=== PATIENT | female | born 1980 | race Caucasian/White ===

== ENCOUNTER 2019-07-17 06:12 | Inpatient (IN) | payer OTHER ==
[~2019-07-17] VITALS: Ht 152.4 cm; Wt 76.4 kg
[2019-07-17] VITALS (73 sets, daily range): BP systolic 86–157; BP diastolic 51–82
--- NOTE | 2019-07-17 06:25 | NUR ---
ADRI LOPEZ presented to unit via ambulation from home/ED, accompanied by Joel Cedillo, automation technologist & SO, for INDUCTION. ADRI LOPEZ weighed, gowned, voided, and to bed. EFHM and TOCO applied, VS taken. ADRI LOPEZ oriented to bed controls, call light, TV, heat, and A/C controls.
[2019-07-17] MEDS ORDERED: OXYTOCIN PRE-MIX DRIP 500 ML IV SCH (06:36)
[2019-07-17] MEDS: LACTATED RINGERS 1,000 ML IV SCH ×3 (06:56→21:00)
[2019-07-17 07:01] LABS: BASOPHILS % (AUTO) 0 % (0-10); EOSINOPHILS % (AUTO) 1 % (0-10); HEMATOCRIT 32 % (35-52); HEMOGLOBIN 10.8 G/DL (11.5-16.0); LYMPHOCYTES # (AUTO) 1.8 X 10^3 (1.0-4.0); LYMPHOCYTES % (AUTO) 32 % (12-44); MEAN CORPUSCULAR HEMOGLOBIN 30 PG (25-34); MEAN CORPUSCULAR HGB CONC 33 G/DL (32-36); MEAN CORPUSCULAR VOLUME 90 FL (80-99); MEAN PLATELET VOLUME 11.2 FL (7.4-10.4); MONOCYTES # (AUTO) 0.4 X 10^3 (0.0-1.0); MONOCYTES % (AUTO) 8 % (0-12); NEUTROPHILS # (AUTO) 3.2 X 10^3 (1.8-7.8); NEUTROPHILS % (AUTO) 59 % (42-75); PLATELET COUNT 213 10^3/uL (130-400); RED CELL DISTRIBUTION WIDTH 13.2 % (10.0-14.5); WHITE BLOOD COUNT 5.5 10^3/uL (4.3-11.0)
--- NOTE | 2019-07-17 07:17 | History & Physical-OB ---
OB - Chief Complaint & HPI Date/Time Date of Admission: Date of Admission: July 17, 2019 at 06:12 Date seen by a Provider: July 17, 2019 Time Seen by a Provider: 08:25 Chief Complaint/History OB-Reason for Admission/Chief: Obstetrical Complication (GDMA2) Hx : 6 Expected Date of Delivery: Aug 21, 2019 Gestational Age in Weeks: 39 Gestational Age in Days: 0 Indication for induction: medical complication Admission Nurse Assessment Rev: Yes History of Labs A pos, Ab neg, RI. HIV/HepB/RPR NR. GC/chlamydia neg. GBS neg. Other AMA, patient declined cell free DNA testing. Had IUD prior to that was not observed to expelled, but not seen on US and patient declined further imaging to eval for abdominal location, no symptoms noted. Allergies and Home Medications Allergies Coded Allergies: No Known Allergies (Verified Allergy, Unknown, 10/25/05) Home Medications Levothyroxine Sodium 75 Mcg Tablet, 75 MCG PO DAILY, (Reported) Metformin HCl 500 Mg Tablet, 500 MG PO BID, (Reported) Vit/Iron Fumarate/FA 1 Each Tablet, 1 EACH PO DAILY, (Reported) Patient Home Medication List Home Medication List Reviewed: Yes OB - History Hx of Present Ultrasounds: Normal mid trimester US, Other (38 week US growth 3685 grams, rayo garcia BPP from 36 weeks have been normal.) Obstetrical History Hx : 6 Hx Para: 5 Hx # Term Pregnancies: 5 Hx # Pregnancies: 0 Number of Living Children: 5 Hx Termination: No Hx Multiple Gestation: No Hx Ectopic : No Hx Stillbirth: No Hx Complication: Yes Hx Induced Hypertens: No Hx Maternal Gestational Diabet: Yes Hx Hemorrhage: No Delivery History Hx Dystocia: No Hx Forceps Assisted Delivery: No Hx Vacuum Extraction Assisted: No Hx Placenta Abnormality: No Hx Distress: No Hx Large For Gestational Age I: No Hx Small for Gestational Age I: No Hx Section: No Hx Vaginal Delivery Post C-Sec: No Hx Blood Disorders: No Adverse Rxn to Tranfusion: No Patient Past Medical History PMHx: Hypothyroidism Social History/Family History HIV/AIDS: No Recent Infectious Disease Expo: No Sexually Transmitted Disease: No Alcohol Use: Denies Use Recreational Drug Use: No Smoking Cessation: Never smoker Immunizations Tetanus Booster (TDap): Less than 5yrs (06/04/2019) Rubella: immune RPR/VDRL: Negative GBS Status: Negative HBsAG: Negative OB - Admission Exam Physical Exam Vitals: Vital Signs 07/17/19 06:35 Temp 36.4 Pulse 73 Resp 16 Pulse Ox 98 O2 Delivery Room Air HEENT: NCAT Lungs: Clear Abdomen: Non tender Extremities: Normal Cervical Dilatation: 1cm Effacement: 0% Station: -3 Membranes: Intact Heart Rate: 140's Accelerations: Accelerations Present Decelerations: No Decelerations Short Term Variability: Present Community Health Advocate Variability: Average (6-25) Contractions on Admission: >10 Minutes Apart Brown Scoring Tool (Modified) Dilation (cm): 1-2cm (1) Effacement (%): 0-30% (0) Descent/Station: -3 (0) Cervix Consistency: Soft (2) Cervix Position: Anterior (2) Add 1 point for: Each previous vaginal delivery (1) (5) Brown Score: 10 Labs Laboratory Tests Test 07/17/19 06:39 Range/Units White Blood Count 5.5 4.3-11.0 10^3/uL Red Blood Count 3.59 L 4.35-5.85 10^6/uL Hemoglobin 10.8 L 11.5-16.0 G/DL Hematocrit 32 L 35-52 % Mean Corpuscular Volume 90 80-99 FL Mean Corpuscular Hemoglobin 30 25-34 PG Mean Corpuscular Hemoglobin Concent 33 32-36 G/DL Red Cell Distribution Width 13.2 10.0-14.5 % Platelet Count 213 130-400 10^3/uL Mean Platelet Volume 11.2 H 7.4-10.4 FL Neutrophils (%) (Auto) 59 42-75 % Lymphocytes (%) (Auto) 32 12-44 % Monocytes (%) (Auto) 8 0-12 % Eosinophils (%) (Auto) 1 0-10 % Basophils (%) (Auto) 0 0-10 % Neutrophils # (Auto) 3.2 1.8-7.8 X 10^3 Lymphocytes # (Auto) 1.8 1.0-4.0 X 10^3 Monocytes # (Auto) 0.4 0.0-1.0 X 10^3 Eosinophils # (Auto) 0.0 0.0-0.3 10^3/uL Basophils # (Auto) 0.0 0.0-0.1 10^3/uL Glucose Level 81 70-105 MG/DL OB - Assessment/Plan/Diagnosis Assessment Admission Dx 39 weeks gestation GDMA2 Hypothyroidism Induction of labor Rubella immune A positive blood type Admission Status: Inpatient Order (span 2 midnights) Reason for Inpatient Admission: Induction, labor and course Plan Plan: Induction Induction Method: per Pitocin Protocol Other Plan Glucose 80s on admit, recheck in 4 hours BAKARI GAMINO MD July 17, 2019 07:17
[2019-07-17] MEDS ORDERED: PREN-37 PO (08:36)
[2019-07-17] MEDS ORDERED: METF-397 PO (08:36)
[2019-07-17] MEDS ORDERED: LEVO75TA6 PO (09:42)
--- NOTE | 2019-07-17 12:26 | Anesthesia-Regional Post-Op ---
Regional Patient Condition Mental Status: Alert, Oriented x3 Circulation: Same as Pre-Op Headache: Absent Sensation: Full Recovery Motor Block: Absent Post Op Complications Complications None Follow Up Care/Instructions Patient Instructions None needed. Anesthesia/Patient Condition Patient is doing well, no complaints, stable vital signs, no apparent adverse anesthesia problems. No complications reported per nursing. RODOLFO CAZARES CRNA July 17, 2019 12:26
[2019-07-17] MEDS ORDERED: CATHETER FLUSH 10 ML SYR IV SCH (14:00)
[2019-07-17] MEDS ORDERED: fentaNYL INJECTION 100 MCG/2 ML AMP ONE ×2 (16:36→18:45)
[2019-07-17] MEDS: fentaNYL INJECTION 100 MCG/2 ML AMP IVP PRN ×2 (16:46→17:58)
[2019-07-17] MEDS ORDERED: fentaNYL 2 mcg/ml BUPIVA 0.125 100 ML ONE (18:11)
--- NOTE | 2019-07-17 18:15 | NUR ---
Joel Serrato CRNA notified of epidural request
[2019-07-17] MEDS ORDERED: BUPIVACAINE 0.25% 30 ML (SENSORCAINE) VIAL ONE (18:45)
--- NOTE | 2019-07-17 18:55 | NUR ---
Joel Serrato LASER SET UP OPERATOR here for epidural placement. Procedure explained, consent reviewed and signed by anesthesia. Questions answered to patient's satisfaction. Time out taken to verify correct patient/procedure. Patient up to side of bed, assisted into sitting position. Betadine prep done x3 and sterile drape applied. Local done, see anesthesia record. Test dose given, see anesthesia record for drug and dosage. Epidural catheter secured in place. Epidural placement complete. Assisted back into bed, monitors adjusted. Epidural dosed, see anesthesia record. Epidural of Sufenta/Bupvicaine @10cc/hr stated per pump. Patient tolerated procedure well.
[2019-07-17] MEDS ORDERED: LACTATED RINGERS 1,000 ML IV SCH (19:29)
[2019-07-17] MEDS ORDERED: METOCLOPRAMIDE INJ 10 MG/2 ML (REGLAN) IV PRN (19:30)
[2019-07-17] MEDS ORDERED: diphenhydrAMINE 50 MG/ML INJ (BENADRYL) IV PRN (19:30)
[2019-07-17] MEDS ORDERED: NALOXONE 0.4 MG/ML 1 ML (NARCAN) VIAL IV PRN ×2 (19:30)
[2019-07-17] MEDS ORDERED: ONDANSETRON 4 MG/2 ML (SDV) Z0FRAN IV PRN (19:30)
[2019-07-17] MEDS ORDERED: EPIDURAL (fentaNYL 2 MCG/ML BUPIVA 0.125%)100 ML BAG EPI PRN (19:30)
[2019-07-17] MEDS ORDERED: D5 LR IV SOLUTION 0 ML IV ONE (19:35)
[2019-07-17] MEDS ORDERED: MINERAL OIL CONCENTRATE 99.9% 15 ML UDC ONE (19:38)
[2019-07-18] VITALS (15 sets, daily range): BP systolic 92–150; BP diastolic 50–106
--- NOTE | 2019-07-18 00:37 | OB Labor & Delivery Record ---
Vag Delivery Note Vag Delivery Note Date of Delivery: 07/18/19 Preoperative Diagnosis: Shayla Cody is a 39 /Para 6 / 5, Gestational Age (wks)39with 1 day, undergoing IOL for GDMA2 Postoperative Diagnosis: Same Surgeon: BAKARI GAMINO Bank Analyst: None Anesthesia: Epidural Delivery Type: Spontaneous vaginal delivery Findings: Viable female infant, apgars 9/9, weight pending Lacerations: right periurethral and perineal abrasions Intact placenta with 3 vessel cord. No nuchal cord, body cord or shoulder dystocia Estimated Blood Loss: 200 ml Complications: None Condition: Stable Description of Procedure: The patient is a 39 year old female who presented for induction of labor due to GDMA2. She was admitted and informed consent was obtained. Her labor course was unremarkable. She progressed to complete dilatation and began to push. She was then set up for delivery. The 's head was delivered atraumatically in the OA position. The shoulders and remainder of the 's body were then delivered without difficulty. Upon delivery, the head was held below the level of the perineum and the mouth and nares were bulb suctioned. The cord was doubly clamped and cut and the infant was handed off to the pediatric staff. An intact placenta with 3-vessel cord delivered via Jenny and there was found to be minimal bleeding.~ Vigorous fundal massage was performed and the fundus was found to be firm. IV oxytocin was given. Examination of the vagina and perineum revealed a right periurethral and perineal abrasion not requiring repair. Following the delivery, sponge, instrument and needle counts were correct. Mom and baby were both in stable condition in the labor suite. Vitals - Labs Vital Signs - I&O Vital Signs Date Time Temp Pulse Resp B/P (MAP) Pulse Ox O2 Delivery O2 Flow Rate FiO2 07/17/19 23:45 83 18 128/61 (83) 100 Non Rebreather 15.00 07/17/19 23:30 76 18 119/59 (79) 100 Non Rebreather 15.00 07/17/19 23:15 75 18 113/56 (75) 100 Non Rebreather 15.00 07/17/19 23:00 77 18 104/59 (74) 100 Non Rebreather 15.00 07/17/19 22:45 69 18 118/67 (84) 100 Non Rebreather 15.00 07/17/19 22:30 65 18 128/66 (86) 100 Non Rebreather 15.00 07/17/19 22:15 63 18 125/64 (84) 100 Non Rebreather 15.00 07/17/19 22:00 60 18 101/54 (70) 100 Non Rebreather 15.00 07/17/19 21:45 64 18 109/66 (80) 100 Non Rebreather 15.00 07/17/19 21:30 57 18 97/56 (70) 100 Non Rebreather 15.00 07/17/19 21:15 55 18 102/57 (72) 100 Non Rebreather 15.00 07/17/19 21:00 62 18 94/51 (65) 100 Non Rebreather 15.00 07/17/19 20:45 55 18 97/52 (67) 100 Non Rebreather 15.00 07/17/19 20:30 77 18 104/59 (74) 100 Non Rebreather 15.00 07/17/19 20:15 63 18 101/57 (72) 100 Non Rebreather 15.00 07/17/19 20:00 36.0 71 18 107/58 (74) 100 Non Rebreather 07/17/19 19:53 57 18 94/51 (65) 100 Non Rebreather 07/17/19 19:50 63 18 95/52 (66) 100 Non Rebreather 07/17/19 19:47 60 18 93/54 (67) 100 Non Rebreather 07/17/19 19:45 66 18 95/54 (68) 99 Non Rebreather 07/17/19 19:42 68 18 96/51 (66) 100 Non Rebreather 07/17/19 19:39 66 18 93/55 (68) 100 Non Rebreather 07/17/19 19:36 64 18 91/53 (66) 100 Non Rebreather 07/17/19 19:33 81 18 92/51 (65) 100 Non Rebreather 15.00 07/17/19 19:30 95 18 86/53 (64) 99 Room Air 07/17/19 19:27 73 18 102/59 (73) 100 Room Air 07/17/19 19:23 70 18 117/59 (78) 98 Room Air 07/17/19 19:20 78 18 117/62 (80) 98 Room Air 07/17/19 19:17 99 18 113/58 (76) 100 Room Air 07/17/19 19:15 93 18 112/55 (74) 98 Room Air 07/17/19 19:11 101 18 113/60 (77) 98 Room Air 07/17/19 19:07 86 18 126/57 (80) 99 Room Air 07/17/19 19:00 94 18 133/63 (86) 98 Room Air 07/17/19 18:40 91 18 137/70 (92) 98 Room Air 07/17/19 18:25 85 18 95/65 (75) 07/17/19 18:10 85 18 126/77 (93) 07/17/19 17:55 70 18 122/82 (95) 07/17/19 17:40 36.7 74 18 157/72 (100) 07/17/19 17:25 70 18 116/66 (83) 07/17/19 17:10 58 18 119/68 (85) 07/17/19 16:55 65 18 117/76 (90) 07/17/19 16:40 72 18 111/70 (84) 07/17/19 16:25 65 18 110/66 (81) 07/17/19 16:15 55 18 114/74 (87) 07/17/19 15:55 36.6 64 18 114/68 (83) 07/17/19 15:40 65 18 135/79 (97) 07/17/19 15:25 68 18 119/69 (86) 07/17/19 15:10 59 18 113/78 (90) 07/17/19 14:55 63 18 111/66 (81) 07/17/19 14:40 58 18 108/65 (79) 07/17/19 14:25 72 18 106/68 (81) 07/17/19 14:10 66 18 107/67 (80) 07/17/19 13:55 60 18 106/70 (82) 07/17/19 13:40 64 18 108/60 (76) 07/17/19 13:25 59 18 105/61 (76) 07/17/19 13:15 36.6 64 18 115/57 (76) 07/17/19 12:55 75 18 120/76 (91) 07/17/19 12:38 62 18 117/72 (87) 07/17/19 11:55 64 18 104/61 (75) 07/17/19 11:45 59 18 110/70 (83) 07/17/19 11:10 65 18 119/73 (88) 07/17/19 10:55 68 18 113/69 (84) 07/17/19 10:40 75 18 109/69 (82) 07/17/19 10:25 36.4 63 18 107/74 (85) 07/17/19 10:10 66 18 106/71 (83) 07/17/19 09:55 66 18 101/67 (78) 07/17/19 09:40 52 18 115/69 (84) 07/17/19 09:10 62 18 107/74 (85) 07/17/19 08:55 63 18 116/73 (87) 07/17/19 08:40 68 18 105/66 (79) 07/17/19 08:25 61 18 105/63 (77) 07/17/19 08:10 36.5 65 18 111/79 (90) 07/17/19 06:35 36.4 73 16 98 Room Air I & O 07/18/19 07:00 Intake Total 1000 ml Balance 1000 ml Labs Laboratory Tests 07/17/19 06:39: White Blood Count 5.5, Red Blood Count 3.59L, Hemoglobin 10.8L, Hematocrit 32L, Mean Corpuscular Volume 90, Mean Corpuscular Hemoglobin 30, Mean Corpuscular Hemoglobin Concent 33, Red Cell Distribution Width 13.2, Platelet Count 213, Mean Platelet Volume 11.2H, Neutrophils (%) (Auto) 59, Lymphocytes (%) (Auto) 32, Monocytes (%) (Auto) 8, Eosinophils (%) (Auto) 1, Basophils (%) (Auto) 0, Neutrophils # (Auto) 3.2, Lymphocytes # (Auto) 1.8, Monocytes # (Auto) 0.4, Eosinophils # (Auto) 0.0, Basophils # (Auto) 0.0, Glucose Level 81, Syphilis Serology Non-Reactive 07/17/19 10:40: Glucometer 75 BAKARI GAMINO MD July 18, 2019 00:37
[2019-07-18] MEDS: OXYTOCIN PRE-MIX DRIP 500 ML IV SCH ×2 (00:45→01:45)
--- NOTE | 2019-07-18 02:50 | NUR ---
Pt to bedpan, first void since delivery, 600ml blood tinged with urine noted in hat, pericare pads changed.
[2019-07-18] MEDS ORDERED: BENZOCAINE/MENTHOL (DERMOPLAST) 60 ML CAN TP PRN (03:30)
[2019-07-18] MEDS ORDERED: WITCH HAZEL(TUCKS) 40 EA JAR TOP PRN (03:30)
[2019-07-18] MEDS: IBUPROFEN 600 MG (MOTRIN) TAB PO SCH ×4 (03:57→22:19)
--- NOTE | 2019-07-18 04:00 | NUR ---
Epidural cath removed, tip in tact, site o/a, asymptomatic per pt report. Pt to [facility] staff asssist, transferred to pp room 311, oriented to call system, surroundings and protocols, will cont to monitor.
[2019-07-18] MEDS ORDERED: CATHETER FLUSH 10 ML SYR IV SCH (06:00)
[2019-07-18] MEDS ORDERED: LEVOTHYROXINE 75 MCG (LEVOTHROID) TABLET PO SCH (06:30)
[2019-07-18] MEDS ORDERED: PRENATAL VITAMIN 1 EA TAB PO SCH (07:00)
[2019-07-18] MEDS: FERROUS SULF 325 MG (IRON) TAB PO SCH (09:23)
[2019-07-18] MEDS: DOCUSATE SODIUM 100 MG (COLACE) CAP PO SCH ×2 (09:24→22:19)
[2019-07-18] MEDS: PRENATAL VITAMIN 1 EA TAB PO SCH (09:24)
--- NOTE | 2019-07-18 11:17 | Anesthesia-Regional Post-Op ---
Regional Patient Condition Mental Status: Alert, Oriented x3 Circulation: Same as Pre-Op Headache: Absent Sensation: Full Recovery Motor Block: Absent Post Op Complications Complications None Follow Up Care/Instructions Patient Instructions None needed. Anesthesia/Patient Condition Patient is doing well, no complaints, stable vital signs, no apparent adverse anesthesia problems. No complications reported per nursing. EUNICE CURTIS CRNA July 18, 2019 11:17
[2019-07-19 01:30] VITALS: BP 105/68
[2019-07-19] MEDS: IBUPROFEN 600 MG (MOTRIN) TAB PO SCH ×2 (04:30→10:41)
[2019-07-19 06:00] LABS: BASOPHILS % (AUTO) 0 % (0-10); EOSINOPHILS # (AUTO) 0.1 10^3/uL (0.0-0.3); EOSINOPHILS % (AUTO) 1 % (0-10); HEMATOCRIT 30 % (35-52); HEMOGLOBIN 9.7 G/DL (11.5-16.0); LYMPHOCYTES # (AUTO) 2.6 X 10^3 (1.0-4.0); LYMPHOCYTES % (AUTO) 26 % (12-44); MEAN CORPUSCULAR HEMOGLOBIN 30 PG (25-34); MEAN CORPUSCULAR HGB CONC 33 G/DL (32-36); MEAN CORPUSCULAR VOLUME 92 FL (80-99); MONOCYTES # (AUTO) 0.7 X 10^3 (0.0-1.0); MONOCYTES % (AUTO) 7 % (0-12); NEUTROPHILS # (AUTO) 6.6 X 10^3 (1.8-7.8); NEUTROPHILS % (AUTO) 66 % (42-75); PLATELET COUNT 163 10^3/uL (130-400); RED CELL DISTRIBUTION WIDTH 13.6 % (10.0-14.5)
--- NOTE | 2019-07-19 07:31 | Discharge Summary ---
Diagnosis/Chief Complaint Date of Admission July 17, 2019 at 06:12 Date of Discharge July 19, 2019 Admission Diagnosis Admission Diagnosis 1. Intrauterine at 39 weeks 2. Gestational diabetes Discharge Diagnosis 1. Intrauterine at 39 weeks 2. Gestational diabetes Chief Complaint/HPI Chief Complaint/HPI 39-year-old 6 now L6 who initially presented at 39 weeks 1 day gestation for induction of labor due to gestational diabetes. She ultimately went on to deliver a term 8 lbs. 0 oz. female over an intact perineum except for right sided periurethral tear. Discharge Summary-OBS Procedures 1. Epidural per anesthesia 2. Spontaneous vaginal deliveryDr. Keyur Discharge Physical Examination Allergies: Coded Allergies: No Known Allergies (Verified Allergy, Unknown, 10/25/05) Vitals & I&Os Intake and Output 07/19/19 00:00 Intake Total 2100 ml Balance 2100 ml Vital Sign - Last 12Hours Date Time Temp Pulse Resp B/P (MAP) Pulse Ox O2 Delivery O2 Flow Rate FiO2 07/19/19 01:30 37.3 64 18 105/68 (80) 97 Room Air 07/18/19 00:15 15.00 General Appearance: No Acute Distress Respiratory: Clear to Auscultation Cardiovascular: Regular Rate Abdominal: Soft (With uterus firm) Hospital Course Was the Problem List Reviewed?: Yes Following delivery patient underwent routine care orders. She had no complications during the remainder of hospital stay. Her hemoglobin in the morning of July 18 was 9.7 compared to admission on 528 of 10.8. Her glucose remained stable during the course of her hospital stay not requiring any medications. She was taking occasional ibuprofen for cramps. She had no complaints in the morning of July 18 and was eager for dismissal. She will follow-up with Dr. Baer in 6 weeks. Labs Laboratory Tests 07/19/19 05:33: White Blood Count 10.0, Red Blood Count 3.23L, Hemoglobin 9.7L, Hematocrit 30L, Mean Corpuscular Volume 92, Mean Corpuscular Hemoglobin 30, Mean Corpuscular Hemoglobin Concent 33, Red Cell Distribution Width 13.6, Platelet Count 163, Mean Platelet Volume 11.0H, Neutrophils (%) (Auto) 66, Lymphocytes (%) (Auto) 26, Monocytes (%) (Auto) 7, Eosinophils (%) (Auto) 1, Basophils (%) (Auto) 0, Neutrophils # (Auto) 6.6, Lymphocytes # (Auto) 2.6, Monocytes # (Auto) 0.7, Eosinophils # (Auto) 0.1, Basophils # (Auto) 0.0 Discharge Instructions to patient/family Please see electronic discharge instructions given to patient. Discharge Medications Reviewed and agree with Discharge Medication list on patient's Discharge Instruction sheet Clinical Quality Measures DVT/VTE Risk/Contraindication: Risk Factor Score Per Nursin RFS Level Per Nursing on Admit: 2=Moderate CARYL MUJICA MD July 19, 2019 07:31
--- NOTE | 2019-07-19 07:33 | Discharge Inst-Women's Service ---
Discharge Inst-Women's Serv Depart Medication/Instructions New, Converted or Re-Newed RX: Other Instructions May take ibuprofen [id number] 2-3 tablets every 6 hours as needed for cramping Problems Reviewed?: Yes Consults/Follow Up Additional Follow Up: Yes (With Dr. Baer in 6 weeks) Activity Activity: Activity as Tolerated Driving Instructions: No Driving for 1 Week Nothing Inside Vagina: No [place] (For 6 weeks) Diet Discharge Diet: Regular Diet Return to The Hospital For: As below Symptoms to Report to : Bleeding Excessive, Fever Over 101 Degrees F, Vaginal Discharge Foul For Any Problems or Questions: Contact Your Physician CARYL MUJICA MD July 19, 2019 07:32
[2019-07-19 08:00] VITALS: BP 105/60
[2019-07-19] MEDS: DOCUSATE SODIUM 100 MG (COLACE) CAP PO SCH (08:02)
[2019-07-19] MEDS: PRENATAL VITAMIN 1 EA TAB PO SCH (08:03)
[2019-07-19] MEDS: FERROUS SULF 325 MG (IRON) TAB PO SCH (08:03)
[2019-07-19 10:55] VITALS: BP 105/60
--- NOTE | 2019-07-19 13:53 | NUR ---
Discharged to home accompanied by crystal, baby in carrier, and Thuan Hartley RN
== END 2019-07-19 13:53 | disposition home or self-care (01) | DRG 807 ==
LOC: LDRP 06:12
PROVIDERS: ADMIT Family Medicine; ATTEND Family Medicine
PROC: 3E033VJ Introduction of Other Hormone into Peripheral Vein, Percutaneous Approach (ICD-10-PCS; 2019-07-17)
PROC: 10E0XZZ Delivery of Products of Conception, External Approach (ICD-10-PCS; principal; 2019-07-18)
DX: O24.425 Gestational diabetes mellitus in childbirth, controlled by oral hypoglycemic drugs (principal); Z37.0 Single live birth; O71.82 Other specified trauma to perineum and vulva; O99.284 Endocrine, nutritional and metabolic diseases complicating childbirth; E03.9 Hypothyroidism, unspecified; Z3A.39 39 weeks gestation of pregnancy; Z79.84 Long term (current) use of oral hypoglycemic drugs
CPT/HCPCS: 36415; 82947; 82962; 85025; 86780; 86850; 86900; 86901